=== PATIENT | male | born 1965 | race Hispanic/Latino ===

== ENCOUNTER 2021-10-23 13:09 | Emergency (ER) | payer OTHER, MEDICARE ==
--- NOTE | 2021-10-23 16:46 | Emergency Department Report ---
ED General Adult HPI - General Chief complaint: Dyspnea/Respdistress Stated complaint: SHORTNESS OF BREATH/HIVES Time Seen by Provider: 10/23/21 16:28 Source: patient Mode of arrival: Ambulatory Limitations: No Limitations - History of Present Illness Initial comments: 55-year-old male presents to the emergency room for 2 complaints. First 1 she started with a rash on both forearms that started this morning. States he is taking nothing for the itchiness and rash. States that the rash just popped up. He denies any pets no new lotions no detergent no new close or foods. Second complaint is states she started having some chest discomfort and feels heavy on his chest. Patient states that started last night until 2 morning. He was not sure that has any association with the rash. He reports that he is chronically on oxycodone and he takes lisinopril for his blood pressure. He is followed by [facility] and [facility]. States he takes oxycodone for chronic pain that he has from a neck fusion in pins and both ankles. His next appointment is November 02, 2021. -: This morning Location: chest, left, right, upper extremity (Rash on bilateral forearms) Severity scale (0 -10): 0 Quality: other (Heaviness) Consistency: constant Improves with: none Worsens with: none Associated Symptoms: rash Treatments Prior to Arrival: none - Related Data Home Medications Medication Instructions Recorded Confirmed Last Taken clonazePAM 2 mg PO TID 07/31/15 07/31/15 07/30/15 Previous Rx's Medication Instructions Recorded Last Taken Type clonazePAM 1 mg PO BID #12 tablet 08/01/15 Unknown Rx Ibuprofen [Motrin 800 MG tab] 800 mg PO Q8HR PRN #21 tablet 10/26/15 Unknown Rx Allergies Allergy/AdvReac Type Severity Reaction Status Date / Time No Known Allergies Allergy Verified 07/31/15 23:08 ED Review of Systems ROS: Stated complaint: SHORTNESS OF BREATH/HIVES Other details as noted in HPI Comment: All other systems reviewed and negative ED Past Medical Hx - Past Medical History Hx Psychiatric Treatment: Yes (ACUTE ANXIETY) - Surgical History Additional Surgical History: neck surgery, Bilateral ankle - Social History Smoking Status: Never Smoker Substance Use Type: None - Medications Home Medications: Home Medications Medication Instructions Recorded Confirmed Last Taken Type clonazePAM 2 mg PO TID 07/31/15 07/31/15 07/30/15 History clonazePAM 1 mg PO BID #12 tablet 08/01/15 Unknown Rx Ibuprofen [Motrin 800 MG tab] 800 mg PO Q8HR PRN #21 tablet 10/26/15 Unknown Rx ED Physical Exam - General Limitations: No Limitations ED Course Vital Signs 10/23/21 13:29 Temperature 98.7 F Pulse Rate 89 Respiratory 18 Rate Blood Pressure 165/99 [Right] O2 Sat by Pulse 99 Oximetry Critical care attestation.: If time is entered above; I have spent that time in minutes in the direct care of this critically ill patient, excluding procedure time. ED Disposition Condition: Stable
[2021-10-23] MEDS ORDERED: predniSONE 20 MG TAB PO ONE (17:07)
[2021-10-23] MEDS ORDERED: FAMOTIDINE 20 MG TAB PO ONE (17:08)
--- NOTE | 2021-10-23 17:15 | Emergency Department Report ---
HPI - General Chief Complaint: Dyspnea/Respdistress Time Seen by Provider: 10/23/21 16:28 - HPI HPI: Room 33 The patient is a 55-year-old male present with chief complaint of rash and chest pain. Patient states he went to sleep last night in his usual state of health. The patient states when he awakened this morning he noticed a rash on both his arms was pruritic in nature and he began having intermittent chest heaviness. Patient admits to some shortness of breath with the chest heaviness but denies nausea/vomiting or diaphoresis. Patient states the chest heaviness has resolved and currently the only thing that is bothering him is a rash on his arms. Patient denies any new exposures/medications/foods. Patient denies history of cough or headache ED Past Medical Hx - Past Medical History Hx Hypertension: Yes Hx Psychiatric Treatment: Yes (ACUTE ANXIETY) - Surgical History Additional Surgical History: neck surgery, Bilateral ankle - Family History Family history: no significant - Social History Smoking Status: Current Every Day Smoker (1/2pack/day) Substance Use Type: None (Denies illicit drug use) - Medications Home Medications: Home Medications Medication Instructions Recorded Confirmed Last Taken Type clonazePAM 2 mg PO TID 07/31/15 07/31/15 07/30/15 History clonazePAM 1 mg PO BID #12 tablet 08/01/15 Unknown Rx Ibuprofen [Motrin 800 MG tab] 800 mg PO Q8HR PRN #21 tablet 10/26/15 Unknown Rx Famotidine [Pepcid] 20 mg PO BID #6 tablet 10/23/21 Unknown Rx Prednisone [predniSONE 10 mg 10 mg PO .TAPER #1 10/23/21 Unknown Rx (6-Day Pack, 21 Tabs)] diphenhydrAMINE [Benadryl CAP] 50 mg PO Q6HR #24 capsule 10/23/21 Unknown Rx ED Review of Systems ROS: Stated complaint: SHORTNESS OF BREATH/HIVES Other details as noted in HPI Constitutional: denies: diaphoresis, fever Eyes: denies: eye pain ENT: denies: throat pain Respiratory: shortness of breath Cardiovascular: chest pain Endocrine: no symptoms reported Gastrointestinal: denies: abdominal pain Genitourinary: denies: dysuria Musculoskeletal: denies: back pain Skin: rash, pruritus Neurological: denies: headache Physical Exam - Physical Exam Vital Signs: Vital Signs 10/23/21 13:29 Temperature 98.7 F Pulse Rate 89 Respiratory 18 Rate Blood Pressure 165/99 [Right] O2 Sat by Pulse 99 Oximetry Physical Exam: GENERAL: The patient is well-developed well-nourished male sitting in chair not appearing to be in acute distress. [] HEENT: Normocephalic. Atraumatic. Extraocular motions are intact. Patient has moist mucous membranes. NECK: Supple. Trachea midline CHEST/LUNGS: Clear to auscultation. There is no respiratory distress noted. HEART/CARDIOVASCULAR: Regular. There is no tachycardia. There is no gallop rub or murmur. ABDOMEN: Abdomen is soft, nontender. Patient has normal bowel sounds. There is no abdominal distention. SKIN: There is an urticarial rash overlying bilateral upper extremities. Pruritic in nature. There is no edema. There is no diaphoresis. NEURO: The patient is awake, alert, and oriented. The patient is cooperative. The patient has no focal neurologic deficits. The patient has normal speech and gait. GCS 15 MUSCULOSKELETAL: There is no evidence of acute injury. ED Course Vital Signs 10/23/21 13:29 Temperature 98.7 F Pulse Rate 89 Respiratory 18 Rate Blood Pressure 165/99 [Right] O2 Sat by Pulse 99 Oximetry ED Medical Decision Making - Lab Data Result diagrams: 10/23/21 17:23 10/23/21 17:23 Laboratory Tests 10/23/21 10/23/21 10/23/21 17:23 17:23 17:23 WBC 11.9 H RBC 5.19 H Hgb 15.8 H Hct 48.3 H MCV 93 MCH 30 MCHC 33 RDW 14.8 Plt Count 376 Lymph % (Auto) 19.2 [place] % (Auto) 6.1 Eos % (Auto) 2.0 Baso % (Auto) 0.8 Lymph # (Auto) 2.3 [place] # (Auto) 0.7 Eos # (Auto) 0.2 Baso # (Auto) 0.1 Seg Neutrophils % 71.9 H Seg Neutrophils # 8.6 H D-Dimer 220.87 Sodium 141 Potassium 4.3 Chloride 100.8 Carbon Dioxide 27 Anion Gap 18 BUN 11 Creatinine 0.8 Estimated GFR > 60 BUN/Creatinine Ratio 14 Glucose 84 Calcium 9.4 Total Creatine Kinase 82 CK-MB (CK-2) 3.1 CK-MB (CK-2) Rel Index 3.7 Troponin T < 0.010 - EKG Data -: EKG Interpreted by Me EKG shows normal: sinus rhythm Rate: normal - EKG Data When compared to previous EKG there are: previous EKG unavailable Interpretation: nonspecific ST-T wave jamal (Flattened T waves aVL) - Differential Diagnosis ACS, PE, pericarditis, GERD, allergic reaction Critical care attestation.: If time is entered above; I have spent that time in minutes in the direct care of this critically ill patient, excluding procedure time. ED Disposition Clinical Impression: Allergic reaction, Chest pain Disposition: 01 HOME / SELF CARE / HOMELESS Is pt being admited?: No Does the pt Need Aspirin: No Condition: Stable Instructions: Nonspecific Chest Pain, Adult, Hives Additional Instructions: Return to the emergency department should you develop worsening symptoms, inability to tolerate food or liquids, high fever or any other concerns Prescriptions: diphenhydrAMINE [Benadryl CAP] 50 mg PO Q6HR #24 capsule Famotidine [Pepcid] 20 mg PO BID #6 tablet Prednisone [predniSONE 10 mg (6-Day Pack, 21 Tabs)] 10 mg PO .TAPER #1 Referrals: VEDA SCHNEIDER MD [Staff Physician] - 3-5 Days (Dr. Schneider is a primary physician. Please follow-up with him to be established as a patient) Time of Disposition: 19:41 Heart Score - HEART Score History: Slightly suspicious EKG: Non-specific Age: 45-65 Risk factors: 1-2 risk factors Troponin: < normal limit HEART Score: 3 - EKG Read Time Time EKG Completed: 17:30 EKG Read Time: 17:35
[2021-10-23 18:52] LABS: Basophils # (Auto) 0.1 K/mm3 (0.0-0.1); Basophils % (Auto) 0.8 % (0.0-1.8); Eosinophils # (Auto) 0.2 K/mm3 (0.0-0.4); Hematocrit 48.3 % (35.5-45.6); Hemoglobin 15.8 gm/dl (11.8-15.2); Lymphocytes # (Auto) 2.3 K/mm3 (1.2-5.4); Lymphocytes % (Auto) 19.2 % (13.4-35.0); Mean Corpuscular HGB Conc 33 % (32-34); Mean Corpuscular Volume 93 fl (84-94); Monocytes # (Auto) 0.7 K/mm3 (0.0-0.8); Monocytes % (Auto) 6.1 % (0.0-7.3); Platelet Count 376 K/mm3 (140-440); Red Blood Count 5.19 M/mm3 (3.65-5.03); Red Cell Distribution Width 14.8 % (13.2-15.2)
[2021-10-23 19:06] LABS: Creatine Kinase MB 3.1 ng/mL (0.0-4.0)
[2021-10-23 19:09] LABS: BUN/Creatinine Ratio 14; Blood Urea Nitrogen 11 mg/dL (9-20); Calcium 9.4 mg/dL (8.4-10.2); Hemolysis Index 8
[2021-10-23 20:11] VITALS: BP 149/94
--- NOTE | 2021-10-25 17:50 | Electrocardiograph Report ---
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
== END 2021-10-23 20:11 | disposition home or self-care (01) ==
LOC: ED 13:09
DX: T78.49XA Other allergy, initial encounter (principal); X58.XXXA Exposure to other specified factors, initial encounter; R07.9 Chest pain, unspecified; F17.200 Nicotine dependence, unspecified, uncomplicated; I10 Essential (primary) hypertension
CPT/HCPCS: 36415; 80048; 82550; 82553; 84484; 85025; 85379; 93005; 99283